=== PATIENT | female | born 1995 | race Caucasian/White ===

== ENCOUNTER 2023-12-24 03:33 | Day surgery (SDC) | payer OTHER ==
--- NOTE | 2023-12-24 03:45 | ED Physician Documentation ---
PD HPI ABD PAIN - Stated complaint Stated Complaint: ABD PX/VOMITING - Chief complaint Chief Complaint: Abd Pain - History obtained from History obtained from: Patient - Additional information Additional information: HPI from patient. Patient complains of sudden onset abdominal pain, diffuse but predominantly across the upper abdomen associate with nausea and vomiting. Onset at approximately 6 PM tonight while at home doing routine tasks in preparation for going to bed. There are no exacerbating nor ameliorating factors. She says she had similar symptoms approximately 2 years ago at which time she was evaluated in an emergency department in [place]; patient says she was told she had gallstones but never followed up for this as the symptoms have not reoccurred until tonight. No past surgical history. Review of Systems Constitutional: denies: Fever, Chills, Sweats Cardiac: reports: Reviewed and negative Respiratory: reports: Reviewed and negative GI: reports: Abdominal Pain, Nausea, Vomiting. denies: Abdominal Swelling, Constipation, Diarrhea : denies: Dysuria, Frequency, Now [facility] [facility] PAST MEDICAL HISTORY - Past Medical History Past Medical History: No - Past Surgical History Past Surgical History: No - Present Medications Home Medications: Ambulatory Orders Medication Instructions Recorded Confirmed No Known Home Medications 12/24/23 12/24/23 - Allergies Allergies/Adverse Reactions: Allergies Allergy/AdvReac Type Severity Reaction Status Date / Time No Known Drug Allergies Allergy Verified 12/24/23 03:38 - Social History Does the pt smoke?: No Smoking Status: Never smoker Does the pt drink ETOH?: No Does the pt have substance abuse?: No - Immunizations Immunizations are current?: No - POLST Patient has POLST: No PD ED PE NORMAL - Vitals Vital signs reviewed: Yes - General General: Alert and oriented X 3, Well developed/nourished, Other (Appears to be in waxing and waning painful distress during H&P) - Cardiac Cardiac: RRR, No murmur - Respiratory Respiratory: No respiratory distress, Clear bilaterally - Abdomen Abdomen: Soft, Non distended, Other (mild-moderate TTP RUQ, RLQ, periumbilicus, and epigastrium. no rebound nor guarding) Results - Vitals Vitals: Vital Signs - 24 hr 12/24/23 12/24/23 03:38 06:27 Temperature 36.6 C Heart Rate 78 72 Respiratory 14 16 Rate Blood Pressure 118/78 122/74 O2 Saturation 100 99 Oxygen O2 Source Room air - Labs Labs: Laboratory Tests 12/24/23 12/24/23 12/24/23 03:45 04:00 04:00 WBC 11.9 H RBC 4.31 Hgb 13.4 Hct 39.3 MCV 91.2 MCH 31.1 H MCHC 34.1 RDW 12.0 Plt Count 246 MPV 9.6 Neut # (Auto) 9.4 H Lymph # (Auto) 1.6 [place] # (Auto) 0.7 Eos # (Auto) 0.1 Baso # (Auto) 0.0 Absolute Nucleated RBC 0.00 Nucleated RBC % 0.0 Sodium 137 Potassium 3.5 Chloride 103 Carbon Dioxide 25 Anion Gap 9.0 BUN 9 Creatinine 0.7 Estimated GFR (MDRD) 100 Glucose 112 H Calcium 9.7 Total Bilirubin 0.5 AST 15 ALT 10 Alkaline Phosphatase 37 L Total Protein 7.4 Albumin 4.8 Globulin 2.6 Albumin/Globulin Ratio 1.8 Lipase 37 Urine Color YELLOW Urine Clarity CLEAR Urine pH 7.0 Ur Specific [place] 1.020 Urine Protein NEGATIVE Urine Glucose (UA) NEGATIVE Urine Ketones TRACE Urine Occult Blood NEGATIVE Urine Nitrite NEGATIVE Urine Bilirubin NEGATIVE Urine Urobilinogen 0.2 (NORMAL) Ur Leukocyte Esterase NEGATIVE Ur Microscopic Review NOT INDICATED Urine Culture Comments NOT INDICATED Urine HCG, Qual NEGATIVE - Rads (name of study) CT A/P with IV contrast Relevant Findings:: Prelim report reviewed, See rad report PD Medical Decision Making - ED course Complexity details: reviewed results, re-evaluated patient, considered differential, d/w patient ED course: Mild leukocytosis on CBC (WBC 11.9). Unremarkable ER abdominal panel including LFTs and lipase. Urinalysis is normal and urine hCG negative. On my bedside ultrasound, I do not see any evidence of cholelithiasis. CT A/P with IV contrast demonstrates "fluid-filled distended appendix measuring up to 7 mm in width, with surrounding [id number] amount of dense ascites", "impression: Acute uncomplicated appendicitis". These are per radiologist's reading. The patient is given 1 L normal saline IV, 4 mg IV Zofran, and 30 mg IV Toradol. These interventions did not result in any improvement in her pain and she is then given 1 mg IV Dilaudid with resolution of her pain (per patient). Results d/w patient. I spoke with Dr. Be (on-call surgery for [facility]); she will come to ED later this morning and assess patient. She says no antibiotics at this time and keep patient NPO. Patient updated on this plan. Departure - Departure Disposition: ED Transfer to [facility] Clinical Impression: Appendicitis Qualifiers: Appendicitis type: acute appendicitis Acute appendicitis type: unspecified acute appendicitis type Qualified Code(s): K35.80 - Unspecified acute appendicitis Condition: Stable Forms: PCP List
[2023-12-24] MEDS: ONDANSETRON 4 MG/2 ML VIAL IVP STA (04:04)
[2023-12-24] MEDS: SODIUM CHLORIDE 0.9% 1,000 ML IV STA ×2 (04:04→04:11)
[2023-12-24] MEDS ORDERED: iohexoL-300 100 ML VIAL ONE (04:09)
[2023-12-24] MEDS: KETOROLAC 30 MG/ML VIAL IVP STA (04:09)
[2023-12-24 04:16] LABS: BASOPHILS % (AUTO) 0.3 %; EOSINOPHILS # (AUTO) 0.1 10^3/uL (0.0-0.7); EOSINOPHILS % (AUTO) 0.5 %; HCT - HEMATOCRIT 39.3 % (37.0-47.0); HGB - HEMOGLOBIN 13.4 g/dL (12.0-16.0); LYMPHOCYTES # (AUTO) 1.6 10^3/uL (1.5-3.5); LYMPHOCYTES % (AUTO) 13.2 %; MEAN CORPUSCULAR HEMOGLOBIN 31.1 pg (27.0-31.0); MEAN CORPUSCULAR HGB CONC 34.1 g/dL (32.0-36.0); MEAN CORPUSCULAR VOLUME 91.2 fL (81.0-99.0); MEAN PLATELET VOLUME 9.6 fL (7.9-10.8); MONOCYTES # (AUTO) 0.7 10^3/uL (0.0-1.0); MONOCYTES % (AUTO) 6.1 %; NEUTROPHILS # (AUTO) 9.4 10^3/uL (1.5-6.6); NEUTROPHILS % (AUTO) 79.6 %; PLT - PLATELET COUNT 246 10^3/uL (130-450); RED BLOOD COUNT 4.31 10^6/uL (4.20-5.40); WHITE BLOOD COUNT 11.9 x10^3/uL (4.8-10.8)
[2023-12-24 04:17] LABS: BILIRUBIN,URINE NEGATIVE (NEGATIVE); GLUCOSE, URINE (UA) NEGATIVE (NEGATIVE); KETONES,URINE (UA) TRACE mg/dL (NEGATIVE); LEUKOCYTE ESTERASE, URINE NEGATIVE (NEGATIVE); NITRITE,URINE NEGATIVE (NEGATIVE); OCCULT BLOOD,URINE NEGATIVE (NEGATIVE); PROTEIN,URINE NEGATIVE (NEGATIVE); UROBILINOGEN,URINE 0.2 (NORMAL) E.U./dL (NORMAL)
[2023-12-24 04:19] LABS: CLARITY,URINE CLEAR (CLEAR); HCG UR QUAL NEGATIVE
[2023-12-24 04:29] LABS: ALBUMIN 4.8 g/dL (3.2-5.5); ALBUMIN/GLOBULIN RATIO 1.8 (1.0-2.2); BILIRUBIN,TOTAL 0.5 mg/dL (0.2-1.0); CALCIUM 9.7 mg/dL (8.5-10.3); CREATININE 0.7 mg/dL (0.6-1.3); POTASSIUM 3.5 mmol/L (3.5-4.5); TOTAL PROTEIN 7.4 g/dL (6.4-8.9)
[2023-12-24] MEDS: HYDROmorphone 1 MG/ML CARPUJECT IVP STA (04:43)
[2023-12-24] MEDS: iohexoL-300 100 ML VIAL IVP ONE (04:46)
[2023-12-24] MEDS ORDERED: MORPHINE 2 MG/ML CARPUJECT IVP PRN ×2 (07:42→09:26)
[2023-12-24] MEDS ORDERED: ONDANSETRON 4 MG/2 ML VIAL IVP PRN ×3 (07:42→12:37)
--- NOTE | 2023-12-24 07:51 | CT Report ---
PROCEDURE: Abdomen/Pelvis W INDICATIONS: abd. pain CONTRAST: Omni 300, 100mls TECHNIQUE: After the administration of intravenous contrast, a CT scan of the abdomen and pelvis was performed. Images were recorded and evaluated at appropriate window settings. Reformats: coronal and sagittal. F or radiation dose reduction, the following was used: automated exposure control, adjustment of mA and /or kV according to patient size. COMPARISON: None. FINDINGS: Image quality: Diagnostic. Lower chest: Unremarkable. Liver: No solid mass. Gallbladder: No radiopaque stones or wall thickening. Biliary tree: No intrahepatic or extrahepatic dilation, accounting for age. Spleen: No splenomegaly. Pancreas: No pancreatic ductal dilation. Adrenals: No adrenal nodule. Kidneys and ureters: No hydronephrosis. No renal cystic lesion which requires follow up. No solid mas s. Stomach, bowel and peritoneum: No gastric or small bowel dilation. No abnormal wall thickening. No pa thologic free fluid. Dilated fluid-filled appendix consistent with acute appendicitis. There is some fluid surrounding the tip of the appendix. There is mild free pelvic fluid. No free pelvic fluid may be physiologic. Lymph nodes: No central or retroperitoneal adenopathy. Vessels: No infrarenal aortic aneurysm. Patent portal vein. PELVIS Reproductive organs: Unremarkable. Bladder: No abnormal wall thickening, accounting for underdistention. Pelvic lymph nodes: No pelvic adenopathy by size criteria. Bones: No aggressive osseous abnormality. Other: No significant ventral or inguinal hernia. IMPRESSION: 1. Acute appendicitis . 2. Fluid is noted adjacent to the tip of the appendix. Findings are concordant with preliminary interpretation provided by [facility]. Reviewed by: Karthik Rogers MD on 12/24/2023 7:50 AM PDT Approved by: Karthik Rogers MD on 12/24/2023 7:50 AM PDT Station ID: [id number]
--- NOTE | 2023-12-24 08:04 | SURGERY HX AND PHYSICAL(T) ---
Surgical History & Physical - Chief Complaint/HPI Chief Complaint: abdominal pain, n/v History of Present Illness: This is a 28-year-old female who was in her normal state of health yesterday. She had a good day yesterday and went picking blackberries. At approximately 6 PM, she developed some periumbilical and epigastric discomfort that became more intense and migrated to the right lower quadrant over the next several hours. At approximately 7 PM, she had some nausea and had a single episode of emesis that contained blackberries, making it difficult to assess if there was any blood or not. The patient does not have any history of peptic ulcer disease, GERD, or abdominal pain prior to yesterday. As her right lower quadrant began to become more uncomfortable, the patient presented to the emergency department early this morning. At the time of my exam, the patient is much more comfortable after receiving pain medication. She denies any nausea or vomiting at this time. She denies any chest pain or shortness of breath. She has no personal or family history of inflammatory bowel disease - PMH/PSH/Social Hx Does the pt have a hx of MRSA?: No PSH Other: Smoking Status: Never smoker Does the pt drink ETOH?: No Does the pt have substance abuse?: No - Family Hx Family Hx: Unremarkable (Patient denies any family history of cancer, heart attack, stroke, inflammatory bowel disease.) - Home Meds and Allergies Home Medications: No Known Home Medications 12/24/23 Allergies/Adverse Reactions: Allergies Allergy/AdvReac Type Severity Reaction Status Date / Time No Known Drug Allergies Allergy Verified 12/24/23 03:38 - Review of Systems Constitutional: Other (A complete 10 point review of symptoms is otherwise negative except for that noted in HPI and PMH.) - Vital Signs Heart Rate: 72 Blood Pressure: 122/74 Temperature: 36.6 C Respiratory Rate: 16 O2 Saturation: 99 Weight (kg): 58.06 kg Height: 1.55 m - Physical Exam Comments/Other: GEN: No acute distress, appears stated age, alert and oriented HEENT: NCAT, MMM, EOMI NEURO: CN II-XII grossly intact, no obvious focal deficits CV: RRR PULM: Nonlabored, on room air ABD: soft, with point tenderness in the right lower quadrant, positive rebound in the right lower quadrant, no guarding, positive Rovsing, positive psoas sign CIRCULATORY: no clubbing, cyanosis, or edema SKIN: no lesions appreciated LYMPH: no obvious lymphadenopathy MSK: 4/4 strength in all extremities PSYCH: Affect is appropriate - Patient Review Patient Review: Problems were reviewed with the patient during this visit. Medications were reviewed with the patient during this visit. Allergies were reviewed this patient during this visit. Pertinent Tests Reviewed: All pertitent test for this patient were reviewed. - Assessment & Plan Assessment and Plan: 28 y/o F with: 1. acute appendicitis - CT abd/pelvis done this AM demonstrates anterior, inflamed appendix with surrounding ascites. No free air. I personally interpreted the images and viewed the report from this study. - history, exam, and labs are also consistent with the diagnosis - I discussed the natural history of acute appendicitis with the patient. We also discussed the risks, benefits, and alternatives of laparoscopic appendectomy including the the use of antibiotics alone. Risks discussed include bleeding, infection, damage to surrounding structures, and the need for further surgeries or procedures. We discussed the intraoperative and postoperative plan. The patient and voiced understanding, she questions were answered, and her wish to proceed with surgery. A consent was signed by the patient. - Patient last had PO yesterday around 1800. She will remain NPO until after surgery. - IV abx ordered for the time of surgery - mulitmodal pain medication ordered - I anticipate discharge from PACU after surgery.
[2023-12-24] MEDS: ACETAMINOPHEN 500 MG TABLET PO ONE (09:20)
[2023-12-24] MEDS: SODIUM CHLORIDE 0.9% 1,000 ML IV SCH (09:21)
--- NOTE | 2023-12-24 09:25 | ANESTHESIA ---
Pre-Anesthesia VS, & Labs - Diagnosis appendicitis - Procedure laparascopic appendectomy Vital Signs: Temp Pulse Resp BP Pulse Ox O2 Flow Rate 36.6 C 72 16 122/74 99 12/24/23 08:22 12/24/23 08:22 12/24/23 08:22 12/24/23 08:22 12/24/23 08:22 Height: 5 ft 1 in Weight (kg): 58.06 kg Body Mass Index: 24.1 BMI Classification: Normal - NPO >8 hours Last Food Intake: 1799 - Is Patient ?: No - Lab Results Current Lab Results: Laboratory Tests 12/24/23 04:00: Sodium 137, Potassium 3.5, Chloride 103, Carbon Dioxide 25, Anion Gap 9.0, BUN 9, Creatinine 0.7, Estimated GFR (MDRD) 100, Glucose 112 H, Calcium 9.7, Total Bilirubin 0.5, AST 15, ALT 10, Alkaline Phosphatase 37 L, Total Protein 7.4, Albumin 4.8, Globulin 2.6, Albumin/Globulin Ratio 1.8, Lipase 37 12/24/23 04:00: WBC 11.9 H, RBC 4.31, Hgb 13.4, Hct 39.3, MCV 91.2, MCH 31.1 H, MCHC 34.1, RDW 12.0, Plt Count 246, MPV 9.6, Neut # (Auto) 9.4 H, Lymph # (Auto) 1.6, [place] # (Auto) 0.7, Eos # (Auto) 0.1, Baso # (Auto) 0.0, Absolute Nucleated RBC 0.00, Nucleated RBC % 0.0 Lab results reviewed: Yes Fish Bones: 12/24/23 04:00 12/24/23 04:00 Home Medications and Allergies Home Medications: Ambulatory Orders No Known Home Medications 12/24/23 Active Medications Sodium Chloride (Normal Saline 0.9%) 1,000 mls @ 125 mls/hr IV .Q8H MAURICIO Last Admin: 12/24/23 09:21 Dose: 125 mls/hr Cefazolin Sodium 2 gm/ Sodium (Chloride) 100 mls @ 200 mls/hr IV ONCE ONE Stop: 12/24/23 12:29 Metronidazole (Flagyl 500 Mg/100 Ml) 500 mg in 100 mls @ 100 mls/hr IV ONCE ONE Stop: 12/24/23 12:59 Morphine Sulfate (Morphine 2 Mg/Ml Carpuject) 4 mg IVP Q2HR PRN PRN Reason: PAIN >8 Ondansetron HCl (Ondansetron 4 Mg/2 Ml Vial) 4 mg IVP Q6HR PRN PRN Reason: Nausea / Vomiting No Known Home Medications 12/24/23 Allergies/Adverse Reactions: Allergies Allergy/AdvReac Type Severity Reaction Status Date / Time No Known Drug Allergies Allergy Verified 12/24/23 03:38 Anes History & Medical History - Anesthetic History Anesthesia Complications: reports: No previous complications Family history of Anesthesia Complications: Denies - Medical History Cardiovascular: reports: None Pulmonary: reports: None Gastrointestinal: reports: None Urinary: reports: None Neuro: reports: None Musculoskeletal: reports: None Endocrine/Autoimmune: reports: None Blood Disorders: reports: None Skin: reports: None Smoking Status: Never smoker Psychosocial: reports: No issues indicated - Surgical History Other Past Surgical History: Exam General: Alert, Oriented x3 Dental: WNL Mouth Openin Fingerbreadth Neck Mobility: Normal Mallampati classification: II Thyromental Distance: 4-6 cm Respiratory: Lungs clear Cardiovascular: Regular rate Plan Anesthesia Type: General Consent for Procedure(s) Verified and Reviewed: Yes Code Status: Attempt Resuscitation ASA classification: 1-Healthy patient Is this case an emergency?: Yes
[2023-12-24] MEDS ORDERED: fentaNYL 100 MCG/2 ML VIAL IVP PRN (09:26)
[2023-12-24] MEDS ORDERED: ATROPINE ABBOJECT 1 MG/10 ML SYRINGE IVP PRN (09:26)
[2023-12-24] MEDS ORDERED: HYDROmorphone 0.5 MG/0.5 ML SYRINGE IVP PRN ×2 (09:26→12:37)
[2023-12-24] MEDS ORDERED: ePHEDrine 50 MG/ML VIAL IVP PRN (09:26)
[2023-12-24] MEDS ORDERED: NALOXONE 0.4 MG/ML VIAL IVP PRN (09:26)
[2023-12-24] MEDS ORDERED: METOCLOPRAMIDE 10 MG/2 ML VIAL IVP PRN (09:26)
[2023-12-24] MEDS ORDERED: LACTATED RINGERS 1,000 ML IV SCH (10:00)
[2023-12-24] MEDS ORDERED: LIDOCAINE-MPF 2% 5 ML VIAL ONE (10:46)
[2023-12-24] MEDS ORDERED: KETOROLAC 30 MG/ML VIAL ONE (10:46)
[2023-12-24] MEDS ORDERED: PROPOFOL 200 MG/20 ML VIAL IVP ONE (10:46)
[2023-12-24] MEDS ORDERED: ONDANSETRON 4 MG/2 ML VIAL ONE (10:46)
[2023-12-24] MEDS ORDERED: DEXAMETHASONE 4 MG/ML VIAL ONE (10:46)
[2023-12-24] MEDS ORDERED: ROCURONIUM 50 MG/5 ML VIAL ONE (10:46)
[2023-12-24] MEDS ORDERED: LIDOCAINE 1%-EPI 1:100000 20 ML MDV ONE (10:47)
[2023-12-24] MEDS ORDERED: BUPIVACAINE 0.25% PF 30 ML VIAL ONE (10:47)
[2023-12-24] MEDS ORDERED: fentaNYL 100 MCG/2 ML VIAL ONE (10:47)
[2023-12-24] MEDS ORDERED: MIDAZOLAM 2 MG/2 ML VIAL ONE (10:47)
[2023-12-24] MEDS ORDERED: ceFAZolin 1 GM VIAL ONE (11:41)
[2023-12-24] MEDS ORDERED: metroNIDAZOLE 500 MG/100 ML 500 MG/100 ML BAG IV ONE (12:00)
[2023-12-24] MEDS ORDERED: ceFAZolin (2G) 2 GM in SODIUM CHLORIDE 0.9% MINIBAG 100 ML IV ONE (12:00)
[2023-12-24] MEDS ORDERED: SUGAMMADEX 200 MG/2 ML VIAL IVP ONE (12:23)
[2023-12-24] MEDS ORDERED: ACETAMINOPHEN 500 MG TABLET PO PRN (12:37)
[2023-12-24] MEDS ORDERED: oxyCODONE 5 MG TABLET PO PRN (12:37)
--- NOTE | 2023-12-24 12:40 | OPERATIVE REPORT ---
Operative Report - General Procedure Date: 12/24/23 Planned Procedure: Laparoscopic appendectomy Pre-Op Diagnosis: Acute appendicitis Procedure Performed: Laparoscopic appendectomy Post Op Diagnosis: Acute appendicitis, without perforation - Procedure Note Primary Surgeon: Dr. Stacy Be Anesthesia Provider: Lauren Leung CRNA Anesthesia Technique: General ET tube, Local Pathology: appendix and contents Estimated Blood Loss (mL): 5 Urine Output (mL): 150 Indications: The patient had acute onset of abdominal pain yesterday evening that worsened and migrated to the right lower quadrant. Her pain was associated with nausea. Workup in the ED including laboratory studies and CT scan is consistent with acute appendicitis. I discussed the natural history of acute appendicitis with the patient. We also discussed the risks, benefits, and alternatives of laparoscopic appendectomy including the the use of antibiotics alone. Risks discussed include bleeding, infection, damage to surrounding structures, and the need for further surgeries or procedures. We discussed the intraoperative and postoperative plan. The patient and voiced understanding, her questions were answered, and she wish to proceed with surgery. A consent was signed by the patient. Findings: 1. Acute, nonperforated appendicitis 2. small amount of serous ascites in the pelvis 3. remainder of abdominal contents appeared grossly normal Complications: None - Other Other Information/Narrative: The patient was brought to the operative suite and placed in the supine position. General endotrachealanesthesia was induced. A Sanchez catheter was placed. Preoperative antibiotics were given. ERAS protocol was followed. A preop surgical timeout was performed. Local anesthetic was injected into the skin and subcutaneous tissues just superior to the umbilicus. An 11 blade scalpel was used to make a 5 mm transverse skin incision in this location. Next, a hemostat was used to spread the tissues down to the level of the fascia and a Andrea clamp was used to grasp and elevate the umbilical stalk. A Varess needle was used to gain access to the peritoneal space. Low flow insufflation revealed low pressures and then high flow insufflation was undertaken to 15 mmHg. Next, the Varess needle was removed and a 5 mm laparoscopic port was inserted in this location. Through this port, a 5 mm 30 degree laparoscope was inserted. On inspection of the abdomen no injury was caused on entry. Next, the patient was placed in Trendelenburg and rotated slightly to the left. 2 more ports were inserted. A 5 mm port was inserted in the suprapubic region, and a 12 mm port was inserted in the left lower quadrant. Both ports were placed by first anesthetizing the skin and subcutaneous tissues with local anesthetic, then by making an appropriate length incision with an 11 blade scalpel, and finally by placing the port under direct laparoscopic vision. Once the ports were in place, 2 atraumatic graspers were used to identify the area of concern. The appendix, terminal ileum, and cecum were identified. There was localized inflammation and a small amount of serous ascites in the pelvis. Gentle dissection with an atraumatic grasper and sharp dissection with a [place] harmonic scalpel was used to free the lateral attachments of the appendix and to divide mesoappendix, taking care to stay close to the appendix. Then, the base of the appendix was divided with the stapler, using a blue load. Great care was taken to ensure that only the base of the appendix was within the jaws of the stapler and then it was fired. The staple line was inspected and noted to be hemostatic.Next, the appendix was placed in an Endo Catch bag and removed through the left lower quadrant port. The left lower quadrant port was then reinserted. Again, the staple line was inspected and noted to be hemostatic. A small amount of serous fluid was suctioned from the pelvis. There was no purulence about the fluid. Next, a laparoscopic fascial closure device was used to place a single, interrupted 0 Vicryl suture at the left lower quadrant port. This reapproximated the fascia well. The remaining ports were removed under direct laparoscopic vision and the abdomen was deflated. Next, the skin edges were reapproximated with 4-0 Monocryl in an interrupted subcuticular fashion. A sterile dressing of skin glue was placed. The Sanchez catheter was removed at the end of the case. The patient was extubated in the operating room and transferred to the recovery room in stable condition. There were no complications.
[2023-12-24] MEDS: LACTATED RINGERS 1,000 ML IV ONE (12:44)
[2023-12-24 13:38] VITALS: BP 105/74; O2SAT 99
--- NOTE | 2023-12-24 13:59 | ANESTHESIA POST OP EVALUATION ---
Anesthesia Post Eval - Post Anesthesia Eval Vitals: Last Vital Signs Temp 36.6 C 12/24/23 13:35 Pulse 76 12/24/23 13:35 Resp 16 12/24/23 13:35 BP 105/74 12/24/23 13:35 Pulse Ox 99 12/24/23 13:35 O2 Flow Rate CV Function Including HR & BP: Stable Pain Control: Satisfactory Nausea & Vomiting: Negative Mental Status: Baseline Respiratory Status: Airway Patent Hydration Status: Satisfactory Anesthesia Complications: None
== END 2023-12-24 07:53 | disposition home or self-care (01) ==
LOC: ED 03:33 → SDS 07:52
PROVIDERS: ATTEND Surgery
PROC: 0DTJ4ZZ Resection of Appendix, Percutaneous Endoscopic Approach (ICD-10-PCS; principal; 2023-12-24 12:30)
DX: K35.80 Unspecified acute appendicitis (principal); Z32.02 Encounter for pregnancy test, result negative
CPT/HCPCS: 36415; 44970; 74177; 80053; 81003; 81025; 83690; 85025; 96374; 96375; 99285; A9270; J1170; J7120; Q9967; 81001; 87086